=== PATIENT | male | born 1985 | race African-American/Black ===

== ENCOUNTER 2021-02-19 09:48 | Emergency (ER) | payer OTHER ==
[2021-02-19 09:56] VITALS: BP 142/86; PULSE 80; TEMP 98.2; BMI 23.6
[2021-02-19 12:15] LABS: BASO % 0.4 % (0-2.0); EOS % 1.4 % (0-4.5); HEMATOCRIT 45.8 % (35.4-49); HEMOGLOBIN 15.4 GM/dL (11.7-16.9); LYMPH % 18.1 % (8-40); MCH 27.9 pg (25.7-33.7); MCHC 33.6 g/dl (32.0-35.9); MEAN CELL VOLUME 83.1 fl (80-96); MEAN PLT VOLUME 7.3 fl (7.5-11.1); MONO % 15.5 % (3.8-10.2); NEUT % 64.6 % (42.8-82.8); PLATELET COUNT 243 10^3/uL (134-434); RBC 5.51 M/mm3 (4.00-5.60); RDW 13.4 % (11.9-15.9); WHITE BLOOD COUNT 6.8 K/mm3 (4.0-10.0)
[2021-02-19 12:33] LABS: ALBUMIN 3.6 g/dl (3.4-5.0); BLOOD UREA NITROGEN 15.3 mg/dL (7-18); CALCIUM 9.5 mg/dL (8.5-10.1)
[2021-02-19 12:36] LABS: CREATININE 1.1 mg/dL (0.55-1.3)
[2021-02-19 12:38] LABS: BILIRUBIN,TOTAL 0.4 mg/dL (0.2-1); TOT PROT 8.7 g/dl (6.4-8.2)
[2021-02-19 13:12] LABS: SYPHILIS W/ RPR CONF NON-REACTIVE (NONREACTIVE)
[2021-02-19 13:37] LABS: HIV INTERPRETATION NEGATIVE (NEGATIVE)
== END 2021-02-19 13:03 | disposition home or self-care (01) ==
LOC: JERFT 09:48
DX: R21 Rash and other nonspecific skin eruption (principal)
CPT/HCPCS: 36415; 80053; 85025; 86780; 87389; 99283-25